=== PATIENT | male | born 1950 | race Caucasian/White ===

== ENCOUNTER 2017-03-03 07:26 | Emergency (ER) | payer BC ==
[2017-03-03 07:45] VITALS: BP 153/94
--- NOTE | 2017-03-03 07:56 | UC ---
Skin Complaint HPI - HPI Summary HPI Summary: 66 YEAR OLD GENTLEMAN PRESENTS WITH COMPLAINS OF POISON IVORY - History of Current Complaint Chief Complaint: UCSkin Time Seen by Provider: 03/03/17 07:55 Stated Complaint: RASH - Allergy/Home Medications Allergies/Adverse Reactions: Allergies Allergy/AdvReac Type Severity Reaction Status Date / Time No Known Allergies Allergy Verified 03/03/17 07:41 Review of Systems Constitutional: Negative Skin: Rash, Other - POISON IVORY Eyes: Negative ENT: Negative Respiratory: Negative Cardiovascular: Negative Gastrointestinal: Negative Genitourinary: Negative Motor: Negative Neurovascular: Negative Musculoskeletal: Negative Neurological: Negative Psychological: Negative All Other Systems Reviewed And Are Negative: Yes PMH/Surg Hx/FS Hx/Imm Hx - Surgical History Surgical History: Yes Surgery Procedure, Year, and Place: hernias - Social History Alcohol Use: None Substance Use Type: None Smoking Status (MU): Never Smoked Tobacco Physical Exam Triage Information Reviewed: Yes Vital Signs: Initial Vital Signs Temp 36.6 C 03/03/17 07:42 Pulse 67 03/03/17 07:42 Resp 16 03/03/17 07:42 BP 153/94 03/03/17 07:42 Pulse Ox 100 03/03/17 07:42 Eye Exam: Normal ENT Exam: Normal Dental Exam: Normal Neck exam: Normal Neck: Positive: 1 Respiratory Exam: Normal Cardiovascular Exam: Normal Abdominal Exam: Normal Musculoskeletal Exam: Normal Neurological Exam: Normal Psychological Exam: Normal Skin: Positive: rashes, Other - POISON IVORY Course/Dx - Diagnoses Provider Diagnoses: POISON IVORY. RASH Discharge - Discharge Plan Condition: Stable Disposition: HOME Prescriptions: Triamcinolone 0.1% CREAM(NF) [Kenalog 0.1% Cream (NF)] 1 applic TOPICAL TID PRN #90 gm PRN Reason: Itching predniSONE TAB* [Deltasone TAB*] 40 mg PO DAILY #10 tab Patient Education Materials: Poison Aida (ED), Acute Rash (ED) Referrals: Jesse Gaston NP [Primary Care Provider] -
== END 2017-03-03 08:09 | disposition home or self-care (01) ==
LOC: UCEAST 07:26
DX: L23.7 Allergic contact dermatitis due to plants, except food (principal)
CPT/HCPCS: 99212; G0463

== ENCOUNTER → 2017-12-24 06:27 | Emergency (ER) | payer BC ==
[~2017-12-24 06:27] MED LIST: ALTEPLASE IV ONE; Alteplase* 100 MG VIAL ONE; Alteplase* 100 MG in PREMIX* 100 ML IV ONE; Iohexol 350* (CONTRAST) 500 ML MDV IV ONE; Labetalol IV* 5 MG/ML 20 ML VIAL IV PUSH ONE; NS 0.9% 1000 ML* 1,000 ML IV ONE
--- NOTE | 2017-12-24 07:24 | ED ---
Moris Mackenzie Thomas, scribed for Jennyfer Bailey MD on 12/24/17 at 0638 . Neurological HPI - HPI Summary HPI Summary: I evaluated the patient at 06:27. The patient is a 67 year old male brought in by ambulance after he was noted to have neurological deficits beginning at 05:45 today. The patient was drinking coffee with his when she noticed that he started to drool and have garbled and unclear speech. So, she called 911 and she made him walk to the car. The patients did examine the patients strength, and he did not have any weakness in his extremities. In the ED, the patient still has some dysarthria and mild left-sided facial droop. - History of Current Complaint Stated Complaint: STROKE LIKE SYMPTOMS Hx Obtained From: Patient, EMS Onset/Duration: Started minutes ago, Still Present Timing: Constant Onset Severity: Moderate Current Severity: Mild Pain Intensity: 0 Pain Scale Used: 0-10 Numeric Aggravating: Nothing - Allergy/Home Medications Allergies/Adverse Reactions: Allergies Allergy/AdvReac Type Severity Reaction Status Date / Time ibuprofen [From Advil] Allergy Mild GI Upset Verified 12/24/17 06:55 PMH/Surg Hx/FS Hx/Imm Hx Cardiovascular History: Reports: Hx Hypertension EENT History: Denies: Hx Deafness - Surgical History Surgery Procedure, Year, and Place: hernias Infectious Disease History: Denies: Hx Clostridium Difficile, Hx Hepatitis, Hx Human Immunodeficiency Virus (HIV), Hx of Known/Suspected MRSA, Hx Shingles, Hx Tuberculosis, Hx Known/ Suspected VRE, Hx Known/Suspected VRSA, History Other Infectious Disease - Family History Known Family History: Positive: Other - Patient denies relevant FHx - Social History Lives: With Family Alcohol Use: None Substance Use Type: Reports: None Smoking Status (MU): Never Smoked Tobacco Review of Systems Negative: Epistaxis Neurological: Other - Dysarthria, garbled speech, facial droop All Other Systems Reviewed And Are Negative: Yes Physical Exam - Summary Physical Exam Summary: VITAL SIGNS: Reviewed. GENERAL: Patient is a well-developed and nourished male who is lying comfortable in the stretcher. Patient is not in any acute respiratory distress. HEAD AND FACE: No signs of trauma. No ecchymosis, hematomas or skull depressions. No sinus tenderness. EYES: PERRLA, EOMI x 2, No injected conjunctiva, no nystagmus. EARS: Hearing grossly intact. Ear canals and tympanic membranes are within normal limits. MOUTH: Oropharynx within normal limits. NECK: Supple, trachea is midline, no adenopathy, no JVD, no carotid bruit, no c- spine tenderness, neck with full ROM. CHEST: Symmetric, no tenderness at palpation LUNGS: Clear to auscultation bilaterally. No wheezing or crackles. CVS: Regular rate and rhythm, S1 and S2 present, no murmurs or gallops appreciated. ABDOMEN: Soft, non-tender. No signs of distention. No rebound no guarding, and no masses palpated. Bowel sounds are normal. EXTREMITIES: FROM in all major joints, no edema, no cyanosis or clubbing. NEURO: Alert and oriented x 3. He has mild left-sided facial droop and mild dysarthria. NIH = 2. SKIN: Dry and warm Vital Signs Reviewed: Yes - Rosa Coma Scale Best Eye Response: 4 - Spontaneous Best Motor Response: 6 - Obeys Commands Best Verbal Response: 5 - Oriented Coma Scale Total: 15 Diagnostics - Laboratory Lab Statement: Any lab studies that have been ordered have been reviewed, and results considered in the medical decision making process. - Radiology CXR Xray Interpretation: No Acute Changes - No acute disease. Radiology Interpretation Completed By: ED Physician - EKG 06:45 Cardiac Rate: NL EKG Rhythm: Sinus Rhythm - at 77 BPM EKG Interpretation: Normal axis, normal intervals, no acute ischemic change. NIH Scale - NIH Scale Level of Consciousness: Alert/Keenly Responsive Ask Patient the Month and His/Her Age: Both Correct Ask Pt to Open/Close Eyes and Helmet Hat Sweatband Puncher/Release Non-Paretic Hand: Both Correctly Best Gaze (Only Horizontal Eye Movement): Normal Visual Field Testing: No Visual Loss Facial Paresis-Pt to Smile & Close Eyes or Grimace Symmetry: Minor Paralysis Motor Function - Right Arm: No Drift-Holds 10 Seconds Motor Function - Left Arm: No Drift-Holds 10 Seconds Motor Function - Right Leg: No Drift-Holds 10 Seconds Motor Function - Left Leg: No Drift-Holds 10 Seconds Limb Ataxia-Must be out of Proportion to Weakness Present: Absent Sensory (Use Pinprick to Test Arms/Legs/Trunk/Face): Normal Best Language (Describe Picture, Name Items): Some Loss Dysarthria (Read Several Words): Normal Extinction and Inattention: No Abnormality Total Score: 2 Course/Dx - Course Assessment/Plan: The patient is a 67 year old male brought in by ambulance after he was noted to have neurological deficits beginning at 05:45 today. The patient was drinking coffee with his when she noticed that he started to drool and have garbled and unclear speech. So, she called 911 and she made him walk to the car. The patients did examine the patients strength, and he did not have any weakness in his extremities. In the ED, the patient still has some dysarthria and mild left-sided facial droop. EKG and CXR were obtained. CT Brain was obtained and the official report has not yet come back. The patient will be signed out to Dr. Hi, pending neurology consult and the official report from the CT Scan. DIAGNOSIS: CVA vs TIA - Diagnoses Provider Diagnoses: CVA (cerebral vascular accident), TIA (transient ischemic attack) During the Visit The Following Alert/Code Occurred: Code Loomis - Code Loomis was called 20 minutes prior to arrival. Discharge - Sign-Out/Discharge Documenting (check all that apply): Sign-Out Patient Signing out patient TO: López Hi - Discharge Plan Condition: Stable Referrals: Jesse Gaston FINISHING RANGE SUPERVISOR [Primary Care Provider] - The documentation as recorded by the Moris skinner Thomas accurately reflects the service I personally performed and the decisions made by me, Jennyfer Bailey MD.
[2017-12-24 07:35] LABS: ABS Basophils 0.1 10^3/ul (0-0.2); ABS Eosinophils 0.2 10^3/ul (0-0.6); ABS Monocytes 1.1 10^3/ul (0-0.8); ABS Neutrophils 8.1 10^3/ul (1.5-7.7); ABS Nucleated RBC 0 10^3/ul; Eosinophil % 1.7 % (0-6); Hematocrit 49 % (42-52); Hemoglobin 16.7 g/dl (14.0-18.0); Lymphocyte % 17.3 % (25-47); Mean Corpuscular HGB Conc 34 g/dl (31-36); Mean Corpuscular Hemoglobin 31 pg (27-31); Mean Corpuscular Volume 90 fL (80-94); Mean Platelet Volume 7.4 um3 (7.4-10.4); Nucleated Red Blood Cells % 0.1; Platelet Count 263 10^3/ul (150-450); Red Blood Count 5.47 10^6/ul (4.0-5.4); Red Cell Distribution Width 14 % (10.5-15); White Blood Count 11.5 10^3/ul (3.5-10.8)
--- NOTE | 2017-12-24 07:43 | RAD ---
INDICATION: Neurologic change. Code valladares. COMPARISON: None TECHNIQUE: Noncontrast axial source images were acquired from the skull base to the vertex. FINDINGS: Ventricles/sulci: The ventricles and cisterns are normal in size and configuration for age. Brain parenchyma: There is no focal parenchymal finding, evidence of intracranial mass, or intracranial mass effect. Intracranial hemorrhage:None. Extra-axial spaces: There are no abnormal extra axial fluid collections or evidence of extra-axial mass. Calvarium: There is no calvarial fracture or other calvarial abnormality. Scalp: There is no evidence of scalp or extracalvarial soft tissue abnormality. Paranasal sinuses/mastoid: The paranasal sinuses and mastoid air cells are clear. Other: None. IMPRESSION: NEGATIVE EXAMINATION Findings called the ED by telephone instrument supervisor service at 0654 hours
[2017-12-24 07:55] LABS: INR 0.98 (0.77-1.02)
--- NOTE | 2017-12-24 08:03 | RAD ---
INDICATION: Neurologic change. Code valladares COMPARISON: February 06, 2008 TECHNIQUE: An AP portable view obtained at 0700 hours is submitted. FINDINGS: Bones/Soft Tissues: There are no acute bony findings. Cardiomediastinal: The cardiomediastinal silhouette is normal. Lungs: There are no infiltrates. Pleura: There are no pleural effusions. Other: None IMPRESSION: NO ACTIVE DISEASE.
[2017-12-24 08:04] LABS: EGFR Non-African American 83.6 (>60)
[2017-12-24 08:34] LABS: Urine Appearance Clear; Urine Blood Negative (Negative); Urine Color Yellow; Urine Ketones Negative (Negative); Urine Protein Negative (Negative); Urine Specific Gravity 1.013 (1.010-1.030); Urine Urobilinogen Negative (Negative)
--- NOTE | 2017-12-24 09:45 | RAD ---
INDICATION: Strokelike symptoms. CT brain without acute findings. COMPARISON: None TECHNIQUE: Axial source images were acquired with coronal and sagittal reconstructions. CT angiographic technique was utilized with injection of 80 mL Omnipaque 350. FINDINGS: Aortic arch: There are intimal calcifications of the aortic arch. There is wide patency. There are no significant CT angiogram abnormalities of the great vessels arising from the arch. Right carotid: The right common carotid artery is widely patent. There is complete occlusion of the right internal carotid artery at the carotid bifurcation. The external carotid artery is widely patent. There is backfilling of the portion of the carotid siphon which is small in caliber Left carotid:The common carotid artery, carotid bifurcation, extracranial portions of the internal carotid artery, carotid artery at the skull base, carotid siphon, and carotid termination appear patent. There is mild to moderate calcific plaque formation involving the left carotid bifurcation with a 50% diameter stenosis of the proximal internal carotid artery. The carotid siphons widely patent. Right middle and anterior cerebral arteries: There are no CT angiographic abnormalities of the middle or anterior cerebral arteries. There is cross-filling via the [place]. Left middle and anterior cerebral arteries: There are no CT angiographic abnormalities of the middle or anterior cerebral arteries Right vertebral: The CT angiographic appearance of the vertebral artery is normal. The vertebral arteries are codominant. Left vertebral: The CT angiographic appearance of the vertebral artery is normal. Basilar artery: The basilar artery and basilar tip appear normal. Posterior cerebral arteries: The distal distribution of the right and left posterior cerebral arteries is normal. [place]: The CT angiographic appearance of the [place] is normal. Source images show no evidence of mass or adenopathy within the neck. There are no focal brain parenchymal abnormalities or abnormal areas of enhancement. IMPRESSION: 1. 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 Cross-filling of the intracerebral circulation on the right via an intact [place]. 2. Calcific plaque formation with estimated 50% diameter stenosis of the left internal carotid artery. 3. No CT angiographic evidence of aneurysm. CPT II Codes: 3100F PQRS
--- NOTE | 2017-12-24 10:52 | ED ---
Clayton Mackenzie Stephanie, scribed for López Hi MD on 12/24/17 at 0759 . Progress - Progress Note Progress Note: The pt is a 67 y/o M presenting to the ED with c/o L sided facial droop and weakness that began at 05:45. The pt states he noticed his speech was slurred and he was choking on his coffee. At 07:37,the pt underwent neuro consult with telestroke neurologist Dr. Fowler. - Results/Orders Results/Orders: CTA Head reveals: 1. 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 Cross-filling of the intracerebral circulation on the right via an intact elem of [place]. 2. Calcific plaque formation with estimated 50% diameter stenosis of the left internal carotid artery. 3. No CT angiographic evidence of aneurysm. CPT II Codes: 3100F [facility] ED physician has reviewed this report. - EKG/XRAY/CT CT: NEGATIVE EXAMINATION Re-Evaluation - Re-Evaluation First Eval Re-Evaluation Time: 10:07 Change: Improved - ED physicia discussed plan of transfer with the pt and the pt understands and agrees. Course/Dx - Course Course Of Treatment: Mr. Tay had the sudden onset of neurological symptoms and signs at 0545 this AM while drinking coffee. He had had breakfast previously with his without difficulty. According to her, he was worse at home but got better some in the ambulance and was a NIHSS 2 on arrival. A Code Vladislav was called and I was present when he returned from [place]. At that point, he had facial weakness and dysarthria as well as a left jennifer-neglect. I could not clearly evaluate his visual singh secondary to cooperation. His NIHSS was [address] Lorenz at [place] was contacted for telestroke and we evaluated Mr. Tay together and he had a NIHSS of 3 at that time. After discussion with the family, the decision was made to give TPA. His BP was borderline high but the majority of the readings were within range so TPA was given at 0843. His CTA showed a toltally occluded right internal carotid with good collateral circulation through the elem of [place]. He does not need emergent surgery but will need definitive treatment that we don't offer here. Dr. Lorenz recommended transfer to [facility] and the family agreed. If he got worse and needed a procedure we would not be able to help him. His NIHSS remained a 3 and his vitals remained stable here. - Diagnoses Provider Diagnoses: CVA (cerebral vascular accident), Carotid artery occlusion During the Visit The Following Alert/Code Occurred: Code Loomis - Code Loomis was called 20 minutes prior to arrival. - Critical Care Time Critical Care Time: 30-74 min Discharge - Sign-Out/Discharge Documenting (check all that apply): Discharge/Admit/Transfer - Transfer - Discharge Plan Condition: Stable Disposition: TRANS HIGHER L OF CARE FAC Referrals: Jesse Gaston INSTANTIZER OPERATOR [Primary Care Provider] - Additional Instructions: Return to the ED for any new or worsening symptoms. - Billing Disposition and Condition Condition: STABLE Disposition: EMTALA The documentation as recorded by the Clayton skinner Stephanie accurately reflects the service I personally performed and the decisions made by me, López Hi MD.
[2017-12-24 11:18] VITALS: BP 157/103
== END | disposition short-term general hospital (02) ==
LOC: ED 06:27
DX: I63.9 Cerebral infarction, unspecified (principal); I65.29 Occlusion and stenosis of unspecified carotid artery; R53.1 Weakness; R47.81 Slurred speech
CPT/HCPCS: 36415; 70450; 70496; 70498; 71045; 80053; 80061; 81003; 81015; 83605; 84484; 85025; 85610; 85730; 86850; 86900; 86901; 87086; 93005; 96374; 99285; J2997; Q9967

== ENCOUNTER 2020-08-05 06:06 | Observation (INO) ==
[~2020-08-05 06:06] MED LIST changes: -ALTEPLASE IV ONE; -Alteplase* 100 MG VIAL ONE; -Alteplase* 100 MG in PREMIX* 100 ML IV ONE; +Buffered Lidocaine 1% SYRIN 1 ml INTRADERM ONE; -Iohexol 350* (CONTRAST) 500 ML MDV IV ONE; -Labetalol IV* 5 MG/ML 20 ML VIAL IV PUSH ONE; +Lactated Ringers 1000 ml BAG 1,000 ML IV SCH; -NS 0.9% 1000 ML* 1,000 ML IV ONE
[2020-08-05] MEDS ORDERED: fentaNYL 250 mcg/5 ml 50 MCG/ML 5 ml VIAL (250 MCG) ONE (07:11)
[2020-08-05] MEDS ORDERED: ceFAZolin 2 GM PREMIX 2 GM/50 ML BAG ONE (07:12)
[2020-08-05] MEDS ORDERED: Midazolam 2 mg/2 ml VIAL 1 mg/ml 2 ml VIAL (2 mg) ONE (07:12)
[2020-08-05] MEDS ORDERED: Buffered Lidocaine 1% SYRIN 1 ml INTRADERM ONE (07:12)
[2020-08-05] MEDS ORDERED: Rocuronium 50 mg VIAL 10 mg/ml 5 ml VIAL (50 mg) ONE ×2 (07:12→08:29)
[2020-08-05] MEDS ORDERED: Phenylephrine IV 10 MG/ML 1 ml VIAL ONE (07:13)
[2020-08-05] MEDS ORDERED: Dexamethasone IV 4 MG/ML VIAL 1 ml VIAL ONE (07:13)
[2020-08-05] MEDS ORDERED: Ondansetron 4 mg VIAL 2 MG/ML 2 ml VIAL ONE (07:13)
[2020-08-05] MEDS ORDERED: Lidocaine 2% PF 5 ML VIAL ONE (07:13)
[2020-08-05] MEDS ORDERED: Propofol 10 MG/ML 20 ML BTL ONE ×2 (07:13→09:41)
[2020-08-05] MEDS ORDERED: Bupivacaine 0.25% SDV 30 ML ONE (07:27)
[2020-08-05] MEDS ORDERED: Bacitracin INJECTION 50,000 UNITS ONE (07:27)
[2020-08-05] MEDS ORDERED: Etomidate 20 mg/10 ml 2 MG/ML 10 ml VIAL ONE (08:28)
[2020-08-05] MEDS ORDERED: EPHEDrine (Pressors) 50 MG/ML VIAL ONE (09:07)
[2020-08-05] MEDS ORDERED: DiMENhydriNATE IV 50 mg/ml 1 ml VIAL IV PUSH PRN (09:29)
[2020-08-05] MEDS ORDERED: Naloxone 0.4 mg VIAL 0.4 mg/ml 1 ml VIAL IV PRN (09:29)
[2020-08-05] MEDS ORDERED: fentaNYL 100 mcg/2 ml 50 MCG/ML VIAL IV PRN (09:29)
[2020-08-05] MEDS ORDERED: HYDROmorphone 1 MG/1 ML SYRINGE ONE (09:37)
[2020-08-05] MEDS ORDERED: Esmolol 10 MG/ML 10 ML (100 mg) ONE (09:39)
[2020-08-05] MEDS ORDERED: Ondansetron 4 mg VIAL 2 MG/ML 2 ml VIAL IV PRN (10:42)
[2020-08-05] MEDS ORDERED: Magnesium Hydroxide LIQ 30 ML UDC PO PRN (10:42)
[2020-08-05] MEDS ORDERED: oxyCODONE/Acetamin 5/325 mg TAB PO PRN (10:47)
[2020-08-05] MEDS ORDERED: hydrALAZINE 20 mg/ml 1 ML Vial IV ONE (11:53)
[2020-08-05] MEDS ORDERED: hydrALAZINE 20 mg/ml 1 ML Vial IV IV SLOW PU ONE (12:07)
[2020-08-05] MEDS ORDERED: HYDROcodone/ACETAMIN 5/325 mg TAB PO PRN ×2 (13:41→13:42)
[2020-08-05] MEDS ORDERED: NS 0.9% 500 ml BAG 500 ML IV ONE (16:07)
[2020-08-05] MEDS ORDERED: Senna TAB 8.6 mg TAB PO SCH (21:00)
[2020-08-06 11:53] VITALS: BP 121/79
== END 2020-08-06 10:46 | disposition home or self-care (01) ==
LOC: OR 06:06 → SSU 13:19 → INTOOBSV 13:19
PROVIDERS: ADMIT Neurological Surgery; ATTEND Neurological Surgery